=== PATIENT | male | born 1995 | race African-American/Black ===

== ENCOUNTER 2018-08-14 00:26 | Emergency (ER) | payer MEDICAID ==
[~2018-08-14] VITALS: Ht 180.3 cm; Wt 106.0 kg
[2018-08-14] MEDS ORDERED: KETOROLAC 60MG/2ML VIAL IM ONE (01:15)
[2018-08-14] MEDS ORDERED: CYCLOBENZAPRINE 10MG TABLET PO ONE (01:15)
[2018-08-14 02:50] VITALS: BP 148/86
== END 2018-08-14 02:51 | disposition home or self-care (01) ==
LOC: ER 00:26
DX: S20.222A Contusion of left back wall of thorax, initial encounter (principal); R56.9 Unspecified convulsions; M25.512 Pain in left shoulder; M62.838 Other muscle spasm; F17.200 Nicotine dependence, unspecified, uncomplicated; Y04.0XXA Assault by unarmed brawl or fight, initial encounter; Y93.89 Activity, other specified; Y92.89 Other specified places as the place of occurrence of the external cause; Y99.8 Other external cause status
CPT/HCPCS: 72070; 73030; 96372; 99283; J1885